=== PATIENT | male | born 1940 | race Caucasian/White ===

== ENCOUNTER 2020-06-18 10:44 | Emergency (ER) | payer MEDICARE ==
[~2020-06-18] VITALS: Ht 175.3 cm; Wt 77.9 kg
[2020-06-18 10:47] VITALS: BP 164/77
[2020-06-18] MEDS ORDERED: SILVER NITRATE STICK TP ONE (10:57)
--- NOTE | 2020-06-18 11:09 | NUR ---
ER PA WAS IN TO SEE PT. SMALL (~2 MM) SCRAPE NOTED TO R LATERAL FOOT. CLEANED BY ER PA AND SILVER NITRATE APPLIED. COVERED WITH GAUZE AND WRAPPED WITH GEORGINA WRAP.
--- NOTE | 2020-06-18 11:32 | NUR ---
D/C INSTRUCTIONS & F/U APPT RV'WD WITH PT, HE VERBALIZES UNDERSTANDING. AMBULATED OUT OF ED WITHOUT DIFFICULTY.
== END 2020-06-18 11:33 | disposition home or self-care (01) ==
LOC: ED 11:20
DX: I83.891 Varicose veins of right lower extremity with other complications (principal); I25.2 Old myocardial infarction
CPT/HCPCS: 99282